=== PATIENT | male | born 1990 | race Caucasian/White ===

== ENCOUNTER 2021-06-01 21:26 | Emergency (ER) | payer OTHER ==
[~2021-06-01] VITALS: Ht 177.8 cm; Wt 66.0 kg
[2021-06-01 21:50] VITALS: BP 141/94
== END 2021-06-01 22:40 | disposition left against medical advice (07) ==
LOC: ER 21:26
DX: Z53.21 Procedure and treatment not carried out due to patient leaving prior to being seen by health care provider (principal)